=== PATIENT | male | born 1945 | race Caucasian/White ===

== ENCOUNTER 2022-06-04 14:43 | Outpatient (CLI) | payer MEDICARE, OTHER | END 2022-06-04 14:44 | disposition home or self-care (01) | LOC: CSHMRI 14:43 | PROVIDERS: ATTEND Family Medicine | DX: M54.16 Radiculopathy, lumbar region (principal); G89.4 Chronic pain syndrome; M48.062 Spinal stenosis, lumbar region with neurogenic claudication; M47.816 Spondylosis without myelopathy or radiculopathy, lumbar region; M48.061 Spinal stenosis, lumbar region without neurogenic claudication | CPT/HCPCS: 72100; 72148 ==

== ENCOUNTER 2022-08-29 15:04 | Outpatient (CLI) | payer MEDICARE, OTHER | END 2022-08-29 15:05 | disposition home or self-care (01) | LOC: CSHMRI 15:04 | PROVIDERS: ATTEND Orthopaedic Surgery Hand Surgery | DX: M92.211 Osteochondrosis (juvenile) of carpal lunate [Kienbock], right hand (principal); M24.231 Disorder of ligament, right wrist ==